=== PATIENT | female | born 1980 | race Caucasian/White ===

== ENCOUNTER 2016-10-05 09:18 | Emergency (ER) ==
[2016-10-05 09:31] VITALS: BP 107/46
--- NOTE | 2016-10-05 09:42 | PROVIDER DOCUMENTATION ---
[facility] General - General Source: patient - History of Present Illness-EENT General EENT Location: reports: dental Quality of Pain: reports: dull Severity: reports: mild Onset/Duration: reports: gradual, other (month) Timing: reports: still present, getting worse (last night) Prearrival Treatment: Initiated over the counter meds (motrin) Associated Symptoms: reports: tooth pain Locality of Occurance: Home Similar Symptoms Previously?: Yes Recently seen or treated by another doctor?: No <Pedro Muse - Last Filed: 10/05/16 09:39> <Obinna Jeffers - Last Filed: 10/05/16 10:21> - General Chief Complaint: Toothache Stated Complaint: TOOTHACHE Time Seen by Provider: 10/05/16 09:35 Allergies/Adverse Reactions: Patient Allergies Allergy/AdvReac Type Severity Reaction Status Date / Time meperidine HCl * Allergy Severe ANAPHYLAXIS Verified 10/05/16 09:34 [From Demerol] tramadol Allergy shaking Verified 10/05/16 09:34 Home Medications: Home Medication List Medication Instructions Recorded Confirmed Last Taken Type Levothyroxine [Synthroid] 125 microgm PO DAILY 01/09/16 10/05/16 10/05/16 07:30 History Acetaminophen/Diphenhydramine 1 each PO Q6-8H PRN PRN #30 tablet 10/05/16 Unknown Rx [Percogesic 325-12.5 mg Tablet] Amoxicillin [Amoxil] 500 mg PO BID #14 capsule 10/05/16 Unknown Rx Benzocaine 20% Gel [Orajel Maximum 1 applicatn TOP 4XDAY PRN PRN #1 10/05/[address] 20% Gel] tube Hydrocodone/APAP 5 mg/325 mg 1 each PO Q6H PRN PRN #10 tablet 10/05/16 Unknown Rx [Wood-5] Ibuprofen [Motrin] 400 mg PO DIRECTED 10/05/16 10/05/16 10/05/16 08:30 History - History of Present Illness-EENT General Nature of Presenting Problem: pt is a 36 yo/ F that presents with toothache to left lower jaw x 1 month that got worse last pm when the rest of the tooth broke off exposing root. patient denies fever/chills, no facial swelling. was treated for the same one month ago (Pedro Muse) Review of Systems - Adult - REVIEW OF SYSTEMS - ADULT Constitutional: denies: chills, fever Eyes: denies: decreased vision, blurred vision, double vision Ears, Nose, Mouth & Throat: reports: mouth/dental pain, mouth swelling. denies : ear pain, throat pain Cardiovascular: reports: no symptoms reported Respiratory: denies: cough, shortness of breath, wheezing Gastrointestinal: denies: diarrhea, nausea, vomiting Genitourinary: reports: no symptoms reported Musculoskeletal: reports: no symptoms reported Integumentary: reports: no symptoms reported Neurological: reports: no symptoms reported Psychiatric: reports: no symptoms reported Endocrine: reports: no symptoms reported Hematologic/Lymphatic: reports: no symptoms reported Allergic/Immunologic: reports: no symptoms reported All Other Systems: Reviewed and Negative <Pedro Muse - Last Filed: 10/05/16 09:39> Past History - Adult - PAST MEDICAL HISTORY-ADULT Review of Records: reports: Old Records Reviewed, Nursing Assessment Review, Medications Reviewed Obstetrical/Gynecological: reports: ovarian cysts ("softball" sized per patient) Musculoskeletal: reports: other fractures, orthopedic injury Endocrine/Immune: reports: thyroid disorder - PRIOR SURGERIES/PROCEDURES Surgical/Procedure History: reports: appendectomy, hysterectomy, , other (TUBAL LIGATION) - IMMUNIZATION STATUS Childhood Immunizations: See Nurse Assessment Flu Vaccine: See Nurse Assessment - FAMILY HISTORY Family History: reviewed, not pertinent - SOCIAL HISTORY Smoking: non-smoker Living Situation: family <Pedro Muse - Last Filed: 10/05/16 09:39> Physical Exam- EENT - Physical Exam EENT Initial Vital Signs Reviewed: Yes General Appearance: alert, no apparent distress, anxious Eye Exam: bilateral eye: normal inspection, PERRL Nasal Exam: normal inspection. negative: sinus tenderness Throat Exam: pharynx normal, dental tenderness (left lower), other (fracture tooth left lower last molar) Neck: full range of motion, normal inspection. negative: lymphadenopathy Respiratory: lungs clear, normal breath sounds, no respiratory distress, no accessory muscle use Cardiovascular: regular rate, rhythm, no murmur Extremity: normal range of motion, normal inspection Integumentary: normal color, warm/dry Neurologic: grossly normal, no motor/sensory deficits Psych/Mental Status: normal thought process, oriented x 3, anxious, tearful <Pedro Muse - Last Filed: 10/05/16 09:39> Progress <Pedro Muse - Last Filed: 10/05/16 09:39> <Obinna Jeffers - Last Filed: 10/05/16 10:21> - PLAN OF CARE/RESULTS Progress/Plan/Lab Results: Orders Category Date Time Status Bupivacaine 0.5% [Marcaine 0.5%] Med 10/05/16 09:52 Discontinued 20 ml INJ NOW ONE Lidocaine 1% [Xylocaine 1%] Med 10/05/16 09:52 Discontinued 5 ml INJ NOW ONE Vital Signs Temp Pulse Resp BP Pulse Ox 10/05/16 09:25 97.7 F 76 20 107/46 98 meperidine HCl * [From Demerol] Allergy (Severe, Verified 10/05/16 09:34) ANAPHYLAXIS tramadol Allergy (Verified 10/05/16 09:34) shaking Levothyroxine [Synthroid] 125 microgm PO DAILY 01/09/16 Ibuprofen [Motrin] 400 mg PO DIRECTED 10/05/16 (Obinna Jeffers) Procedures - ENT PROCEDURES Nerve Block: Dental Anesthetic: 0.5%, Bupivicaine/Marcaine Volume of Anesthetic (ml's): 1.5 Procedure Comment: successful; no complications <Obinna Jeffers - Last Filed: 10/05/16 10:21> Departure <Pedro Muse - Last Filed: 10/05/16 09:39> - Departure Time of Disposition Order: 10:11 Certified Medical Emergency: Urgent <Obinna Jeffers - Last Filed: 10/05/16 10:21> - Departure DIAGNOSIS: Tooth pain Broken tooth Qualifiers: Encounter type: initial encounter Fracture type: closed Qualified Code(s): S02.5XXA - Fracture of tooth (traumatic), initial encounter for closed fracture Disposition: HOME 01 Condition: Good Additional Instructions: Take medication as prescribed. Follow up with a dentist. Dr. Chatterjee: Address: [address] [place] [address] [id number], [place] [id number] [address] [facility] (Info you were given) Return to the ER for any new or worsening symptoms. ED Follow Up Instructions: You have been treated by a care provider in the Emergency Department. These instructions are being provided to you so you can have an understanding of how to care for yourself upon discharge. Upon discharge from the Emergency Department, you are responsible for making arrangements for follow-up care by a physician of your choice. Take all prescribed medications as directed. Return to the Emergency Department immediately for any new or worsening symptoms. You may call the Physician Referral phone number at [phone] to obtain a list of Physicians who are taking new patients. Prescriptions: Amoxicillin [Amoxil] 500 mg PO BID #14 capsule Hydrocodone/APAP 5 mg/325 mg [Wood-5] 1 each PO Q6H PRN PRN #10 tablet PRN Reason: Pain Benzocaine 20% Gel [Orajel Maximum St 20% Gel] 1 applicatn TOP 4XDAY PRN PRN #1 tube PRN Reason: Pain Acetaminophen/Diphenhydramine [Percogesic 325-12.5 mg Tablet] 1 each PO Q6-8H PRN PRN #30 tablet PRN Reason: Pain Attestation - Scribe Verification/Attestation Scribe:: Pedro Muse Acting as Scribe for:: Obinna Jeffers Scribe documention review:: This chart was documented by a scribe and accurately reflects the service the provider performed and the decisions made by the provider. - Physician/ VIVEK Attestation Patient care was provided by Advanced Practice Provider:: Yes Advanced Practice Provider:: Obinna Jeffers Advanced Practice Provider documentation review:: The Mid-level provider documentation, treatment plan and medical decision making was reviewed by the physician who agrees with all treatment and medical decision making by the [facility]. <Pedro Muse - Last Filed: 10/05/16 09:39> - Physician/ VIVEK Attestation Patient care was provided by Advanced Practice Provider:: Yes Advanced Practice Provider:: Obinna Jeffers Advanced Practice Provider documentation review:: The Mid-level provider documentation, treatment plan and medical decision making was reviewed by the physician who agrees with all treatment and medical decision making by the [facility]. <Obinna Jeffers - Last Filed: 10/05/16 10:21> Physician Attestation - Physician Attestation I, the provider, attest to the following statement:: Obinna Jeffers Physician documentation Attestation:: This documentation recorded by the scribe accurately reflects the service I personally performed and the decisions made by me. <Pedro Muse - Last Filed: 10/05/16 09:39>
[2016-10-05] MEDS ORDERED: XYLOCAINE 1% INJ ONE (09:52)
[2016-10-05] MEDS ORDERED: MARCAINE 0.5% INJ ONE (09:52)
== END 2016-10-05 10:33 | disposition home or self-care (01) ==
LOC: ED 09:18
DX: S02.5XXA Fracture of tooth (traumatic), initial encounter for closed fracture (principal); K08.89 Other specified disorders of teeth and supporting structures; R22.0 Localized swelling, mass and lump, head; E07.9 Disorder of thyroid, unspecified; Z79.899 Other long term (current) drug therapy
CPT/HCPCS: S0020